=== PATIENT | male | born 1965 ===

== ENCOUNTER 2025-05-11 21:02 | Emergency (ER) | payer BC ==
[~2025-05-11] VITALS: Ht 172.7 cm; Wt 81.6 kg
[2025-05-11] MEDS ORDERED: MORPHINE SULFATE 4 MG/1 ML DISP.SYRIN ONE (21:19)
[2025-05-11] MEDS ORDERED: TAMSULOSIN HCL 0.4 MG CAP.SR.24H ONE (21:19)
[2025-05-11] MEDS ORDERED: ONDANSETRON 4 MG/2 ML VIAL ONE ×2 (21:19→22:01)
[2025-05-11] MEDS: TAMSULOSIN HCL 0.4 MG CAP.SR.24H PO ONE (21:23)
[2025-05-11 21:27] LABS: PLATELET COUNT (AUTO) 315 K/uL (152-348); RED BLOOD CELL COUNT(AUTO) 5.29 MIL/uL (4.06-5.63); RED CELL DISTRIBUTION WIDTH 14.7 % (12.1-16.2); WHITE BLOOD COUNT (AUTO) 10.4 K/uL (3.6-10.2)
[2025-05-11] MEDS: MORPHINE SULFATE 4 MG/1 ML DISP.SYRIN IV ONE (21:31)
[2025-05-11] MEDS: IV NORMAL SALINE 500 ML BAG IV ONE ×2 (21:31→23:00)
[2025-05-11] MEDS: ONDANSETRON 4 MG/2 ML VIAL IV ONE ×2 (21:31→22:16)
[2025-05-11 21:34] LABS: CREATININE 1.1 mg/dL (0.6-1.3); SODIUM SERUM 139.0 mmol/L (136-145); UREA NITROGEN, BLOOD 12.0 mg/dL (7-18)
[2025-05-11 21:40] LABS: ASPARTATE AMINOTRANSFERASE 15.0 U/L (15-37); TOTAL PROTEIN, SERUM 7.8 g/dL (6.4-8.2)
[2025-05-11] MEDS ORDERED: HYDROMORPHONE 1 MG/1 ML DISP.SYRIN ONE (22:01)
[2025-05-11] MEDS: HYDROMORPHONE 1 MG/1 ML DISP.SYRIN IV ONE (22:16)
[2025-05-11] MEDS ORDERED: KETOROLAC TROMETHAMINE 15 MG INJ ONE (22:55)
[2025-05-11] MEDS: KETOROLAC TROMETHAMINE 15 MG INJ IVP ONE (23:00)
[2025-05-11 23:01] VITALS: BP 156/85
[2025-05-11 23:39] LABS: *BILIRUBIN,URIN NEGATIVE (NEGATIVE); *BLOOD, URINE 3+ (NEGATIVE); *COLOR,URINE LIGHT YELLOW (YELLOW); *KETONES,URINE NEGATIVE (NEGATIVE); *PROTEIN,URINE NEGATIVE (NEGATIVE); *UROBILINOGEN,URINE 0.2 E.U./dl (NORMAL); LEUKOCYTE ESTERASE ,URINE NEGATIVE (NEGATIVE); NITRITE, URINE NEGATIVE (NEGATIVE); UGLUCOSE NEGATIVE (NEGATIVE)
[2025-05-11 23:41] LABS: *CLARITY,URINE HAZY (CLEAR)
[2025-05-11 23:47] LABS: CALCIUM OXALATE CRYSTALS,UR RARE /HPF (NONE SEEN)
[2025-05-12] MEDS ORDERED: OXYC5TAB3 PO (00:06)
[2025-05-12] MEDS ORDERED: CEPH500C2 PO (00:06)
[2025-05-12] MEDS ORDERED: [UNRECOGNIZED DRUG - CODE] PO (00:06)
[2025-05-12] MEDS ORDERED: TAMS0.4C PO (00:06)
[2025-05-12] MEDS ORDERED: IBUP-2760 PO (00:06)
[2025-05-12] MEDS ORDERED: CEFTRIAXONE /D5W 50ML IVPB **ER PYXIS IV ONE (00:06)
[2025-05-12] MEDS ORDERED: ONDA4TAB5 PO (00:07)
[2025-05-12 01:18] VITALS: BP 144/80; O2SAT 99
[2025-05-13] MEDS ORDERED: CARV6.252 PO (02:09)
[2025-05-13] MEDS ORDERED: ATOR40TA PO (02:09)
[2025-05-13] MEDS ORDERED: TIRZ5PEN SUBCUT (02:09)
[2025-05-13] MEDS ORDERED: LOSA25TA27 PO (02:09)
[2025-05-13] MEDS ORDERED: ASPI81TA31 PO (02:09)
[2025-05-13] MEDS ORDERED: METF-442 PO (02:09)
[2025-05-13] MEDS ORDERED: PIOG30TA10 PO (02:09)
== END 2025-05-12 01:02 | disposition home or self-care (01) ==
LOC: ER 21:14
DX: N13.2 Hydronephrosis with renal and ureteral calculous obstruction (principal); R10.A2 Flank pain, left side; I10 Essential (primary) hypertension; E11.9 Type 2 diabetes mellitus without complications; E78.5 Hyperlipidemia, unspecified; I25.10 Atherosclerotic heart disease of native coronary artery without angina pectoris; Z79.02 Long term (current) use of antithrombotics/antiplatelets; Z87.442 Personal history of urinary calculi; Z95.1 Presence of aortocoronary bypass graft
CPT/HCPCS: 99285; 74176; 96375; 96361; 80053; 81001; 83735; 85025; 84145; 86140; 87086; 36415; 96376; 96365; J1885; J2405 ×2; J1171; J2270; J7040 ×2; J0696; A4606; A4663

== ENCOUNTER 2025-05-13 01:33 | Emergency (ER) | payer BC ==
[~2025-05-13] VITALS: Ht 172.7 cm; Wt 81.6 kg
[~2025-05-13 01:33] MED LIST: CEPH500C2 PO; IBUP-2760 PO; ONDA4TAB5 PO; OXYC5TAB3 PO; TAMS0.4C PO; [UNRECOGNIZED DRUG - CODE] PO
[2025-05-13] MEDS ORDERED: KETOROLAC TROMETHAMINE 30 MG INJ ONE (01:57)
[2025-05-13] MEDS ORDERED: HYDROMORPHONE 1 MG/1 ML DISP.SYRIN ONE ×2 (01:58→03:28)
[2025-05-13] MEDS ORDERED: ONDANSETRON 4 MG/2 ML VIAL ONE (01:58)
[2025-05-13] MEDS: IV NORMAL SALINE 1000 ML BAG IV ONE (01:59)
[2025-05-13 02:05] LABS: PLATELET COUNT (AUTO) 298 K/uL (152-348); RED BLOOD CELL COUNT(AUTO) 5.12 MIL/uL (4.06-5.63); RED CELL DISTRIBUTION WIDTH 14.7 % (12.1-16.2); WHITE BLOOD COUNT (AUTO) 8.9 K/uL (3.6-10.2)
[2025-05-13] MEDS: KETOROLAC TROMETHAMINE 30 MG INJ IVP ONE (02:06)
[2025-05-13] MEDS: ONDANSETRON 4 MG/2 ML VIAL IV ONE (02:06)
[2025-05-13] MEDS: HYDROMORPHONE 1 MG/1 ML DISP.SYRIN IV ONE ×2 (02:06→03:35)
[2025-05-13] MEDS ORDERED: PIOG30TA10 PO (02:09)
[2025-05-13] MEDS ORDERED: LOSA25TA27 PO (02:09)
[2025-05-13] MEDS ORDERED: ATOR40TA PO (02:09)
[2025-05-13] MEDS ORDERED: TIRZ5PEN SUBCUT (02:09)
[2025-05-13] MEDS ORDERED: METF-442 PO (02:09)
[2025-05-13] MEDS ORDERED: CARV6.252 PO (02:09)
[2025-05-13] MEDS ORDERED: ASPI81TA31 PO (02:09)
[2025-05-13 02:10] LABS: CREATININE 1.5 mg/dL (0.6-1.3); SODIUM SERUM 136.0 mmol/L (136-145); UREA NITROGEN, BLOOD 11.0 mg/dL (7-18)
[2025-05-13 02:15] LABS: ASPARTATE AMINOTRANSFERASE 18.0 U/L (15-37); TOTAL PROTEIN, SERUM 7.7 g/dL (6.4-8.2)
[2025-05-13] MEDS ORDERED: LABETALOL HCL 100 MG/20 ML VIAL ONE (02:41)
[2025-05-13 02:48] VITALS: BP 186/97
[2025-05-13] MEDS: LABETALOL HCL 100 MG/20 ML VIAL IV ONE (02:48)
[2025-05-13 03:00] VITALS: BP 107/71; O2SAT 98
== END 2025-05-13 03:41 ==
LOC: ER 01:38
DX: N13.2 Hydronephrosis with renal and ureteral calculous obstruction (principal); I11.9 Hypertensive heart disease without heart failure; E11.9 Type 2 diabetes mellitus without complications; E78.5 Hyperlipidemia, unspecified; Z79.82 Long term (current) use of aspirin; Z79.84 Long term (current) use of oral hypoglycemic drugs; Z79.899 Other long term (current) drug therapy
CPT/HCPCS: 99285; 96374; 96375; 96361; 80076; 80048; 83690; 85025; 96376; J1885; J3490; J2405; J1171 ×2; J7040 ×2; A4606; A4663